=== PATIENT | male | born 1955 | race Caucasian/White ===

== ENCOUNTER 2018-09-04 17:38 | Emergency (ER) | payer OTHER ==
--- NOTE | 2018-09-04 17:41 | EDM.PDOC ---
ED HPI GENERAL MEDICAL PROBLEM - General Chief Complaint: Lower Extremity Injury/Pain Stated Complaint: Knee Injury; Workers Comp Time Seen by Provider: 09/04/18 17:39 Source of Information: Reports: Patient, RN, RN Notes Reviewed History Limitations: Reports: No Limitations - History of Present Illness INITIAL COMMENTS - FREE TEXT/NARRATIVE: Patient presents to the ED at [facility] for the evaluation of right knee pain. Patient states while at work around 4am last night, he was getting out of a work vehicle when he slipped and fell on ice twisting his right knee. Patient states he was able to walk on it ok and it seem to be fine until 3pm this afternoon when the pain started. He states the pain is sharp and stabbing during ambulation. Pain is ok when seating or not using the RLE. He denies any previous injury or trauma. No previous right knee surgeries. He states his pain is right medial knee only without any radiation. Patient denies any numbness, tingling, or paresthesia of the RLE. Patient states his injury happened in [place], [place]. Patient states he has already filed the appropriate paperwork for [place]. 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 (see below) (None) Right Mid-Anterior Knee Pain Score (Numeric/FACES): 10 - Related Data Allergies Allergy/AdvReac Type Severity Reaction Status Date / Time No Known Allergies Allergy Verified 09/04/18 18:00 Home Meds: Home Meds Insulin Glarg,Human.Rec.Analog [Lantus] 60 units DAILY 09/04/18 [History] Insulin Regular, Human [Novolin R] 10 - 20 units ASDIRECTED 09/04/18 [History] Review of Systems - Review of Systems Review Of Systems: See Below Constitutional: Denies: Chills, Fever, Weakness Respiratory: Denies: Shortness of Breath, Cough Cardiovascular: Denies: Chest Pain, Palpitations Musculoskeletal: Reports: Joint Pain, Joint Swelling Skin: Reports: No Symptoms Neurological: Reports: No Symptoms. Denies: Numbness, Paresthesia, Tingling ED EXAM, GENERAL - Physical Exam Exam: See Below Exam Limited By: No Limitations General Appearance: Alert, No Apparent Distress Respiratory/Chest: No Respiratory Distress, Lungs Clear, Normal Breath Sounds Cardiovascular: Normal Peripheral Pulses, Regular Rate, Rhythm Peripheral Pulses: 2+: Posterior Tibial (R), Dorsalis Pedis (R) Extremities: Other (Right medial knee pain; no obvious swelling; no obvious bone deformity; patient is able to bare weight; negative Lachmans and negative Antidrawer test). No: Joint Swelling Neurological: Alert, Oriented Skin Exam: Warm, Dry, Intact, Normal Color Course - Vital Signs Last Recorded V/S: Last Vital Signs Temp 37.7 C 09/04/18 17:40 Pulse 94 09/04/18 17:40 Resp 20 09/04/18 17:40 BP 158/91 H 09/04/18 17:40 Pulse Ox 96 09/04/18 17:40 - Orders/Labs/Meds Orders: Active Orders 24 hr Category Date Time Status Knee 3V Rt [CR] Stat Exams 09/04/18 17:51 Ordered - Radiology Interpretation Free Text/Narrative:: Knee, Right 3V: No acute fracture or dislocation seen on plain film as read by myself See scanned report in EMR for details Departure - Departure Time of Disposition: 18:15 Disposition: Home, Self-Care 01 Condition: Good Clinical Impression: Right knee sprain Qualifiers: Encounter type: initial encounter Involved ligament of knee: unspecified ligament Qualified Code(s): S83.91XA - Sprain of unspecified site of right knee , initial encounter Right knee injury Qualifiers: Encounter type: initial encounter Qualified Code(s): S89.91XA - Unspecified injury of right lower leg, initial encounter Fall due to ice or snow Qualifiers: Encounter type: initial encounter Qualified Code(s): W00.9XXA - Unspecified fall due to ice and snow, initial encounter - Discharge Information *PRESCRIPTION DRUG MONITORING PROGRAM REVIEWED*: Not Applicable *COPY OF PRESCRIPTION DRUG MONITORING REPORT IN PATIENT DESHAUN: Not Applicable Instructions: Knee Sprain, Adult Forms: ED Department Discharge Additional Instructions: 1. Stay well hydrated and rest 2. May alternate Tylenol/Advil as needed for pain 3. Rest, elevate, and ice several times a day 4. Recommend wearing a knee sleeve or CHARU wrap for comfort 5. Keep right knee moving so it does not get stiff 6. May want to see your PCP in the next week for a recheck - Problem List Review Problem List Initiated/Reviewed/Updated: Yes - My Orders Last 24 Hours: My Active Orders 09/04/18 17:51 Knee 3V Rt [CR] Stat - Assessment/Plan Last 24 Hours: My Active Orders 09/04/18 17:51 Knee 3V Rt [CR] Stat Assessment:: Right knee sprain Right knee injury Fall on ice Plan: Xray discussed with patient. No acute fracture or dislocation. Recommend rest, elevation, and ice several times a day for the next week or so. May alternate Tylenol/Advil as needed for pain. May want to try a right knee sleeve for comfort and stability. Follow up with PCP in one week, sooner if problems.
--- NOTE | 2018-09-04 18:38 | CR ---
[id number] RAD/RAD Knee Right 3V EXAM: RAD Knee Right 3V CLINICAL DATA: TRAUMA COMPARISON: NO PREVIOUS SIMILAR EXAM IS AVAILABLE. FINDINGS: No fracture or dislocation is seen. There is no radiopaque foreign body in the soft tissues. There is no air in the soft tissues. There is no cortical thickening or periosteal reaction either. IMPRESSION: NEGATIVE PLAIN FILM EXAM. Torsten Gallo MD 09/04/18 [id number] Thank you for allowing us to participate in the care of your patient.
== END 2018-09-04 18:27 | disposition home or self-care (01) ==
LOC: VM.ED 17:38
DX: S83.91XA Sprain of unspecified site of right knee, initial encounter (principal); W00.0XXA Fall on same level due to ice and snow, initial encounter; Y99.0 Civilian activity done for income or pay
CPT/HCPCS: 73562-RT; 99283

== ENCOUNTER 2019-02-12 09:44 | Emergency (ER) | payer OTHER ==
--- NOTE | 2019-02-12 10:10 | EDM.PDOC ---
ED HPI GENERAL MEDICAL PROBLEM - General Chief Complaint: Chest Pain Stated Complaint: CHEST PAINS Time Seen by Provider: 02/12/19 09:51 Source of Information: Reports: Patient, RN, RN Notes Reviewed History Limitations: Reports: No Limitations - History of Present Illness INITIAL COMMENTS - FREE TEXT/NARRATIVE: Patient presents to the ED at [facility] for the evaluation of chest pressure that started about one week ago. The patient states his pressure is over the left anterior chest wall. No radiation of the pain. He states sometimes he feels like his "heart is skipping beats." He denies any SOB. Denies any abdominal pain. No N/V/D. No focal neurological deficits. Denies any cough. Has some dizziness when laying down. No previous cardiac problems except for untreated hypertension. Left Chest Pain Score (Numeric/FACES): 3 - Related Data Allergies Allergy/AdvReac Type Severity Reaction Status Date / Time No Known Allergies Allergy Verified 02/12/19 10:11 Home Meds: Home Meds Insulin Glarg,Human.Rec.Analog [Lantus] 60 units SQ DAILY 09/04/18 [History] Insulin Regular, Human [Novolin R] 10 - 20 units SQ ASDIRECTED 09/04/18 [History ] Past Medical History - Past Surgical History GI Surgical History: Reports: Appendectomy Musculoskeletal Surgical History: Reports: Other (See Below) Other Musculoskeletal Surgeries/Procedures:: L foot surgery ED ROS GENERAL - Review of Systems Review Of Systems: See Below Constitutional: Denies: Fever, Chills Respiratory: Denies: Shortness of Breath, Cough Cardiovascular: Reports: Chest Pain, Blood Pressure Problem, Palpitations. Denies: Dyspnea on Exertion, Lightheadedness, Orthopnea GI/Abdominal: Denies: Abdominal Pain, Nausea, Vomiting Skin: Reports: No Symptoms Neurological: Reports: No Symptoms ED EXAM, GENERAL - Physical Exam Exam: See Below Exam Limited By: No Limitations General Appearance: Alert, No Apparent Distress Respiratory/Chest: No Respiratory Distress, Lungs Clear, Normal Breath Sounds Cardiovascular: Normal Peripheral Pulses, Regular Rate, Rhythm Peripheral Pulses: 2+: Radial (L), Radial (R) GI/Abdominal: Normal Bowel Sounds, Soft, Non-Tender Neurological: Alert, Oriented Skin Exam: Warm, Dry, Intact, Normal Color EKG INTERPRETATION EKG Date: 02/12/19 Time: 09:50 Rhythm: NSR Rate (Beats/Min): 90 [place]: Normal P-Wave: Present QRS: Normal ST-T: Normal QT: Normal [place]/PQ Interval: 0.19 Comparison: NA - No Prior EKG EKG Interpretation Comments: 1. NSR with occasional PVC Course - Vital Signs Last Recorded V/S: Last Vital Signs Temp 36.9 C 02/12/19 09:50 Pulse 89 02/12/19 09:50 Resp 18 02/12/19 09:50 BP 156/85 H 02/12/19 09:50 Pulse Ox 96 02/12/19 09:50 - Orders/Labs/Meds Orders: Active Orders 24 hr Category Date Time Status EKG 12 Lead [EKG Documentation Completion] [RC] STAT Care 02/12/19 09:52 Active Labs: Laboratory Tests 02/12/19 02/12/19 02/12/19 Range/Units 10:10 10:10 10:10 WBC 4.6 (4.0-10.0) x10^3/uL RBC 4.42 L (4.5-6.0) x10^6/uL Hgb 15.2 (14.0-18.0) g/dL Hct 41.5 (40.0-52.0) % MCV 93.9 H (78.0-93.0) fL MCH 34.4 H (26.0-32.0) pg MCHC 36.6 H (32.0-36.0) g/dL RDW Coeff of Berhane 13.5 (10.0-15.0) % Plt Count 162 (130-400) x10^3/uL Neut % (Auto) 53.1 (50.0-80.0) % Lymph % (Auto) 35.5 (25.0-50.0) % Greenlee % (Auto) 8.4 (2.0-11.0) % Eos % (Auto) 2.4 (0.0-4.0) % Baso % (Auto) 0.6 (0.2-1.2) % Sodium 135 L (136-145) mmol/L Potassium 4.2 (3.5-5.1) mmol/L Chloride 98 (98-107) mmol/L Carbon Dioxide 25 (21-32) mmol/L Anion Gap 16.2 (10-20) mmol/L BUN 13 (7-18) mg/dL Creatinine 0.8 (0.70-1.30) mg/dL Est Cr Clr Drug Dosing TNP Estimated GFR (MDRD) > 60 Glucose 232 H (74-106) mg/dL Calcium 8.7 (8.5-10.1) mg/dL Corrected Calcium 8.94 (8.5-10.1) mg/dL Total Bilirubin 1.3 H (0.2-1.0) mg/dL AST 35 (15-37) U/L ALT 61 (16-63) U/L Alkaline Phosphatase 70 (46-116) U/L Creatine Kinase 96 (39-308) U/L Troponin I < 0.017 (<=0.056) ng/mL Total Protein 7.7 (6.4-8.2) g/dL Albumin 3.7 (3.4-5.0) g/dL Globulin 4.0 Albumin/Globulin Ratio 0.93 Amylase 39 (25-115) U/L Lipase 136 (73-393) U/L Meds: Medications Discontinued Medications Generic Name Dose Route Start Last Admin Trade Name Freq PRN Reason Stop Dose Admin Al Hydroxide/Mg Hydroxide 30 ml 02/12/19 09:57 02/12/19 10:18 Gi Cocktail PO 02/12/19 09:58 30 ml ONETIME ONE Administration - Radiology Interpretation Free Text/Narrative:: CXR: No acute cardiopulmonary process seen on plain film See scanned report in EMR Departure - Departure Time of Disposition: 11:02 Disposition: Home, Self-Care 01 Reason for Transfer *Q: Other Condition: Good Clinical Impression: Atypical chest pain Instructions: Nonspecific Chest Pain Referrals: Cristy Millan PA-C [Primary Care Provider] - Forms: ED Department Discharge Additional Instructions: 1. Stay well hydrated and rest 2. Your labs, EKG, and chest xray were normal today 3. [facility] possible [facility] 4. Call us with any questions or concerns - Problem List Review Problem List Initiated/Reviewed/Updated: Yes - My Orders Last 24 Hours: My Active Orders 02/12/19 09:52 EKG 12 Lead [EKG Documentation Completion] [RC] STAT - Assessment/Plan Last 24 Hours: My Active Orders 02/12/19 09:52 EKG 12 Lead [EKG Documentation Completion] [RC] STAT Assessment:: Atypical chest pain Plan: Labs, xray, and EKG were discussed with patient. No acute findings noted. Patient has gotten better at time of discharge. Long discussion held with patient regarding lifestyle modifications. Strongly recommended to follow up with PCP for further treatment of blood pressure and other chronic medical problems. Patient was discharge in hemodynamic stable condition.
[2019-02-12] MEDS: GI Cocktail Oral Solution 30 ML PO ONE (10:18)
--- NOTE | 2019-02-12 10:42 | CR ---
[id number] RAD/RAD Chest PA And Lateral EXAM: RAD Chest PA And Lateral INDICATION: CHEST PAIN. COMPARISON: None. DISCUSSION: Cardiomediastinal silhouette is enlarged. No infiltrate, effusion, pneumothorax, or edema. IMPRESSION: No acute cardiopulmonary abnormality. Tony Doran DO 02/12/19 1041 Thank you for allowing us to participate in the care of your patient.
[2019-02-12 10:43] LABS: CHLORIDE,CL 98 mmol/L (98-107); SODIUM,NA 135 mmol/L (136-145)
[2019-02-12 10:46] LABS: ANION GAP 16.2 mmol/L (10-20)
== END 2019-02-12 11:18 | disposition home or self-care (01) ==
LOC: VM.ED 09:44
DX: R07.89 Other chest pain (principal); I10 Essential (primary) hypertension
CPT/HCPCS: 36415; 71046; 80053; 82150; 82550; 83690; 84484; 85025; 93005; 93010; 99284-GF; 99285-25; A9270-GY

== ENCOUNTER 2019-10-27 14:24 | Emergency (ER) | payer OTHER ==
--- NOTE | 2019-10-27 14:58 | EDM.PDOC ---
ED HPI GENERAL MEDICAL PROBLEM - General Chief Complaint: Skin Complaint Stated Complaint: right 1st toe, red, swollen, tender Time Seen by Provider: 10/27/19 14:40 Source of Information: Reports: Patient History Limitations: Reports: No Limitations - History of Present Illness INITIAL COMMENTS - FREE TEXT/NARRATIVE: Patient presents to the ER with complaints of right 1st metatarsal pain, and redness. Patient states he believes it is infected and would like an antibiotic. Patient states he has a history of DM, but no longer takes medication due to his A1c being 5.2, well controlled. Patient states he still has neuropathy in bilateral feet. Patient states he was cutting his toe nails and believes he may have cut the skin around the toe, about 1 week ago. Area has progressively gotten more tender, red and swollen. Patient doctors at the [facility] in [place], he called them today about his symptoms and was told to go to the ER. Patient also states he has noticed tenderness and foul smell from right upper molar area, states he noticed it was sore and smelt foul after brushing teeth this morning. patient denies fever, chills, chest pain, SOB, hypotension, dizziness, lightheadedness, body chills/aches, rash or any other signs of infection. Onset: Gradual Onset Date: 10/20/19 Duration: Getting Worse Location: Reports: Lower Extremity, Right Severity: Moderate Improves with: Reports: None Worsens with: Reports: None Right Toe-Hailux Pain Score (Numeric/FACES): 6 - Related Data Allergies Allergy/AdvReac Type Severity Reaction Status Date / Time No Known Allergies Allergy Verified 10/27/19 14:39 Home Meds: Home Meds . [No Known Home Meds] 10/27/19 [History] Past Medical History Cardiovascular History: Reports: Hypertension Endocrine/Metabolic History: Reports: Diabetes, Type II Other Endocrine/Metabolic History: pancreatitis 12/17 - Past Surgical History GI Surgical History: Reports: Appendectomy Musculoskeletal Surgical History: Reports: Other (See Below) Other Musculoskeletal Surgeries/Procedures:: L foot surgery Social & Family History - Tobacco Use Smoking Status *Q: Never Smoker ED ROS GENERAL - Review of Systems Review Of Systems: See Below Constitutional: Reports: No Symptoms. Denies: Fever, Chills, Malaise, Weakness , Fatigue HEENT: Reports: No Symptoms, Other (right sided gum tenderness, foul smell ) Respiratory: Reports: No Symptoms Cardiovascular: Reports: No Symptoms Endocrine: Reports: No Symptoms GI/Abdominal: Reports: No Symptoms Musculoskeletal: Reports: No Symptoms Skin: Reports: Erythema (right 1st metatarsal) Neurological: Reports: No Symptoms Psychiatric: Reports: No Symptoms Hematologic/Lymphatic: Reports: No Symptoms Immunologic: Reports: No Symptoms ED EXAM, SKIN/RASH Exam: See Below Exam Limited By: No Limitations General Appearance: Alert, WD/WN, No Apparent Distress Ears: Normal External Exam Nose: Normal Inspection Throat/Mouth: Normal Inspection, Other (red swollen right upper gum line, no purulent discharge or lesion) Head: Atraumatic, Normocephalic Neck: Normal Inspection, Supple, Non-Tender, Full Range of Motion Respiratory/Chest: No Respiratory Distress, Lungs Clear, Normal Breath Sounds, Chest Non-Tender Cardiovascular: Normal Peripheral Pulses, Regular Rate, Rhythm, No Edema, No Murmur Peripheral Pulses: 2+: Dorsalis Pedis (R) (Male) Exam: Deferred Rectal (Males) Exam: Deferred Back Exam: Normal Inspection, Full Range of Motion Extremities: Normal Capillary Refill Neurological: Alert, Oriented, CN II-XII Intact, Normal Cognition, Normal Gait, Normal Reflexes, No Motor/Sensory Deficits Psychiatric: Normal Affect, Normal Mood Skin: Warm, Dry, Intact, Normal Color, No Rash Location, Skin: Lower Extremity, Left Characteristics: Erythematous (right 1st metatarsal medial erythema, swelling around nail, no purulent discharge or lesions) Associated features: Tenderness, Swelling Lymphatic: No Adenopathy Course - Vital Signs Last Recorded V/S: Last Vital Signs Temp 36.9 C 10/27/19 14:28 Pulse 81 10/27/19 14:28 Resp 18 10/27/19 14:28 BP 139/77 10/27/19 14:28 Pulse Ox 96 10/27/19 14:28 Departure - Departure Time of Disposition: 15:00 Disposition: Home, Self-Care 01 Condition: Good Clinical Impression: Cellulitis and abscess of foot - Discharge Information Instructions: Amoxicillin; Clavulanic Acid tablets, Cellulitis, Adult Forms: ED Department Discharge Additional Instructions: Augmentin 875mg 1 twice daily for 10 days Recheck in clinic in 10-14 days Follow-up with dentist regarding your tooth Sepsis Event Note - Evaluation Sepsis Screening Result: No Definite Risk - Focused Exam Vital Signs: Vital Signs Temp Pulse Resp BP Pulse Ox 10/27/19 14:28 36.9 C 81 18 139/77 96 Date Exam was Performed: 10/27/19 Time Exam was Performed: 14:51 - Assessment/Plan Plan: Augmentin 875mg 1 twice daily for 10 days Recheck in clinic in 10-14 days Follow-up with dentist regarding your tooth
== END 2019-10-27 14:49 | disposition home or self-care (01) ==
LOC: VM.ED 14:24
DX: L02.611 Cutaneous abscess of right foot (principal); L03.031 Cellulitis of right toe; I10 Essential (primary) hypertension; E11.9 Type 2 diabetes mellitus without complications
CPT/HCPCS: 99283; 99283-GF

== ENCOUNTER 2020-04-14 12:02 | Emergency (ER) | payer OTHER ==
[2020-04-14] MEDS ORDERED: Lidocaine 1% 30 ML SDV INJECT ONE (12:13)
--- NOTE | 2020-04-14 13:31 | EDM.PDOC ---
ED HPI GENERAL MEDICAL PROBLEM - General Stated Complaint: LACERATION TO THUMB Time Seen by Provider: 04/14/20 12:12 Source of Information: Reports: Patient History Limitations: Reports: No Limitations - History of Present Illness INITIAL COMMENTS - FREE TEXT/NARRATIVE: Pt. presents to ER with complaints of laceration to L thumb. He states that he cut it on a jar. He states that his tetanus is up to date. He states that the laceration is located to the webbing between his thumb and index finger. He also sustained some small abrasions/ superficial lacerations to his R forearm as well. He states that his ROM is normal. He does complain of some mild paresthesia to the tip of his thumb. Onset: Today Onset Date: 04/14/20 Location: Reports: Upper Extremity, Left - Related Data Allergies Allergy/AdvReac Type Severity Reaction Status Date / Time No Known Allergies Allergy Verified 10/27/19 14:39 Home Meds: Home Meds . [No Known Home Meds] 10/27/19 [History] Past Medical History Cardiovascular History: Reports: Hypertension Endocrine/Metabolic History: Reports: Diabetes, Type II Other Endocrine/Metabolic History: pancreatitis 12/17 - Past Surgical History GI Surgical History: Reports: Appendectomy Musculoskeletal Surgical History: Reports: Other (See Below) Other Musculoskeletal Surgeries/Procedures:: L foot surgery ED ROS GENERAL - Review of Systems Review Of Systems: See Below Constitutional: Reports: No Symptoms HEENT: Reports: No Symptoms Respiratory: Reports: No Symptoms Cardiovascular: Reports: No Symptoms Endocrine: Reports: No Symptoms GI/Abdominal: Reports: No Symptoms : Reports: No Symptoms Musculoskeletal: Reports: Hand Pain Skin: Reports: No Symptoms Neurological: Reports: No Symptoms Psychiatric: Reports: No Symptoms Hematologic/Lymphatic: Reports: No Symptoms Immunologic: Reports: No Symptoms ED EXAM, GENERAL - Physical Exam Exam: See Below Exam Limited By: No Limitations General Appearance: Alert, WD/WN, No Apparent Distress Extremities: Other (5 cm laceration to webbing between L index finger and thumb. It is bleeding briskly. No obvious trauma noted to the underlying structures of the laceration.) ED GENERAL MEDICAL PROCEDURES - Laceration/Wound Repair Left Hand Lac/wound length in cm: 5 Appearance: Subcutaneous Distal NVT: No Tendon Injury, Other (mild paresthesia reported to finger after anesthetic was injected. CMS was otherwise intact pre and post closure.) Local Anesthesia - Lidocaine (Xylocaine): 1% Plain Local Anesthetic Volume: 5cc Skin Prep: Chlorhexidine (Hibiciens), Saline Exploration/Debridement/Repair: Wound Explored Closed with: Sutures Suture Size: 3-0 # of Sutures: 6 Course - Orders/Labs/Meds Meds: Medications Discontinued Medications Generic Name Dose Route Start Last Admin Trade Name Emerita PRN Reason Stop Dose Admin Lidocaine HCl 30 ml 04/14/20 12:13 Xylocaine-Mpf 1% INJECT 04/14/20 12:14 ONETIME ONE Departure - Departure Time of Disposition: 13:32 Disposition: Home, Self-Care 01 Clinical Impression: Laceration - Discharge Information Instructions: Laceration Care, Adult Additional Instructions: Suture removal in 14 days. This can be done in the clinic. You have a total of 6 sutures. Keep dressing on until Sunday AM. Keep extremity elevated above heart to decrease discomfort. Tylenol as needed for discomfort. Return to ER if there is any redness, swelling, or discharge from the area. - Assessment/Plan Plan: Suture removal in 14 days. This can be done in the clinic. You have a total of 6 sutures. Keep dressing on until Sunday AM. Keep extremity elevated above heart to decrease discomfort. Tylenol as needed for discomfort. Return to ER if there is any redness, swelling, or discharge from the area.
[2020-04-14] MEDS ORDERED: LORazepam 0.5 MG Tab PO ONE (14:13)
== END 2020-04-14 12:58 | disposition home or self-care (01) ==
LOC: VM.ED 12:02
DX: S61.412A Laceration without foreign body of left hand, initial encounter (principal); I10 Essential (primary) hypertension; E11.9 Type 2 diabetes mellitus without complications; W26.8XXA Contact with other sharp object(s), not elsewhere classified, initial encounter
CPT/HCPCS: 12002; 99282; J2001